=== PATIENT | female | born 1945 | race Caucasian/White ===

== ENCOUNTER 2019-02-01 08:50 | Day surgery (SDC) | payer OTHER ==
[~2019-02-01] VITALS: Ht 147.3 cm; Wt 78.0 kg
--- NOTE | 2019-02-01 07:30 | NUR ---
PREOP LABS RESULTS NOTED DRAWN 18-19. RESULTS COPIES REVIEWED WITH ANNE ARCOS CHARGE NURSE IN SURGERY. REVIEWED WITH DR JACOBSON ANESTHESIOLOGIST. LABS OK FOR SURGERY, DO NOT REDRAW.
[2019-02-01 09:34] VITALS: BP 158/88
[2019-02-01 17:44] VITALS: BP 156/90
== END 2019-02-01 17:15 | disposition home or self-care (01) ==
LOC: DS 08:50 → OR 12:30 → DS 17:15
DX: K80.10 Calculus of gallbladder with chronic cholecystitis without obstruction (principal); K82.8 Other specified diseases of gallbladder; E78.5 Hyperlipidemia, unspecified; E66.3 Overweight; M81.0 Age-related osteoporosis without current pathological fracture; K21.9 Gastro-esophageal reflux disease without esophagitis; E11.22 Type 2 diabetes mellitus with diabetic chronic kidney disease; I12.9 Hypertensive chronic kidney disease with stage 1 through stage 4 chronic kidney disease, or unspecified chronic kidney disease; N18.9 Chronic kidney disease, unspecified; D64.9 Anemia, unspecified; F03.90 Unspecified dementia, unspecified severity, without behavioral disturbance, psychotic disturbance, mood disturbance, and anxiety; M06.9 Rheumatoid arthritis, unspecified; F17.210 Nicotine dependence, cigarettes, uncomplicated; Z98.891 History of uterine scar from previous surgery; Z79.899 Other long term (current) drug therapy; Z90.710 Acquired absence of both cervix and uterus; Z98.890 Other specified postprocedural states; Z88.0 Allergy status to penicillin; Z78.0 Asymptomatic menopausal state; Z68.35 Body mass index [BMI] 35.0-35.9, adult
CPT/HCPCS: J0330; J1170; J2405; J2704; J3010; J3490; J7120